=== PATIENT | female | born 1940 | race Caucasian/White ===

== ENCOUNTER 2018-01-22 20:37 | Emergency (ER) | payer OTHER ==
[2018-01-22] MEDS: LIDOCAINE 5% PATCH TD (21:54)
[2018-01-22] MEDS ORDERED: NAPROXEN 500 MG TAB PO (22:00)
== END 2018-01-22 22:29 | disposition home or self-care (01) ==
LOC: FTE 20:37
DX: M25.511 Pain in right shoulder (principal); G89.29 Other chronic pain; R40.2412 Glasgow coma scale score 13-15, at arrival to emergency department; I10 Essential (primary) hypertension; J45.909 Unspecified asthma, uncomplicated; Z79.01 Long term (current) use of anticoagulants
CPT/HCPCS: 99282